=== PATIENT | male | born 2000 | race African-American/Black ===

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

== ENCOUNTER → 2022-09-11 | Outpatient (CLI) | payer OTHER ==
--- NOTE | 2022-09-11 12:24 | XR ---
EXAMINATION TYPE: XR ankle complete LT DATE OF EXAM: 09/11/2022 COMPARISON: NONE HISTORY: Pain FINDINGS: Three views of the ankle demonstrate the ankle mortise to be intact and symmetric. The joint spaces are preserved. The osseous structures are intact. IMPRESSION: 1. No definite acute fracture or dislocation, if symptoms persist follow-up study in 7 to 10 days wou ld be suggested.
== END | disposition home or self-care (01) ==
LOC: RADXRYALE 12:09
PROVIDERS: ATTEND Internal Medicine
DX: S99.912A Unspecified injury of left ankle, initial encounter (principal)